=== PATIENT | male | born 1980 | race Caucasian/White ===

== ENCOUNTER 2023-04-17 08:08 | Inpatient (IN) | payer MEDICAID, SELFPAY ==
[2023-04-17] VITALS (13 sets, daily range): BP systolic 145–172; BP diastolic 85–108; PULSE 80–104; RESP 12–24; TEMP 36.4–36.9; O2SAT 97–99; BMI 31.8
--- NOTE | 2023-04-17 | ECHO_ITS ---
Patient Info Name: Paxton Benavides Age: 42 years : 1980 Gender: Male Ht: 69 in Wt: 214 lbs BSA: 2.20 m2 HR: 80 bpm BP: 153 / 98 mmHg Heart Rhythm: Sinus Rhythm Technical Quality: Fair Exam Date: 04/17/2023 3:14 PM Exam Location: [facility] Patient Status: Inpatient Admit Date: 04/17/2023 Staff Ordering Physician: Roger Hopper MD (chelsea/jem) Coal Digger: Monqiue Jesus RDCS Attending Provider: Roger Hopper MD (chelsea/jem) Referring Physician: Ward QUINTANA; Exam Type: CA echo dop color flow w con Study Info Indications - STEMI Complete two-dimensional, color flow and Doppler transthoracic echocardiogram is performed with contrast to opacify the left ventricle and to improve the deliniation of the left ventricle endocardial borders. Contrast/Agitated Saline Contrast/Ag. Saline: Definity Amount: 2.00 ml Administered By: Monique Jesus RDCS Existing IV Access: Yes IV Access Condition: patent with no signs of infiltration Summary 1. Left ventricular chamber dimension is normal. 2. Left ventricular systolic function is normal, estimated at 60-65%. 3. There is mildly increased left ventricular wall thickness. 4. The left ventricular diastolic function is grade I diastolic dysfunction. 5. The basal inferior wall, mid inferior wall, basal inferoseptal, and mid inferoseptal are hypokinetic. 6. There is mild tricuspid valve regurgitation. 7. There is mild pulmonic regurgitation. Left Ventricle Left ventricular chamber dimension is normal. Left ventricular systolic function is normal, estimated at 60-65%. There is mildly increased left ventricular wall thickness. The left ventricular diastolic function is grade I diastolic dysfunction. The basal inferior wall, mid inferior wall, basal inferoseptal, and mid inferoseptal are hypokinetic. All other shearer appear normal. Right Ventricle Right ventricular chamber dimension is normal. Right ventricular systolic function is normal. Left Atria Left atrial chamber dimension is normal. Right Atria Right atrial chamber dimension is normal. Atrial Septum Intact interatrial septum visualized by color flow imaging. Aortic Valve The aortic valve is trileaflet. There is no aortic valve sclerosis. There is no aortic valve stenosis. There is trace aortic valve regurgitation. Pulmonic Valve The pulmonic valve is normal. There is no pulmonic valve stenosis. There is mild pulmonic regurgitation. Mitral Valve The mitral valve has normal leaflets. There is no mitral valve stenosis. There is trace mitral valve regurgitation. Tricuspid Valve The tricuspid valve leaflets are normal. There is no significant tricuspid valve stenosis. There is mild tricuspid valve regurgitation. No pulmonary hypertension, estimated pulmonary arterial systolic pressure is 26 mmHg. Pericardium/Pleural The pericardium appears normal. There is no pericardial effusion. Inferior Vena Cava Normal inferior vena cava with >50% collapse upon inspiration consistent with normal right atrial pressure, 10 mmHg. Aorta The aortic root size at the sinus of Valsalva is normal. Left Ventricular Outflow Tract Name Value Normal LVOT 2D LVOT Diameter 2.01 cm L
--- NOTE | 2023-04-17 08:14 | ECG_ITS ---
Measurements Intervals [place] Rate: 75 P: 55 WA: 206 QRS: 36 QRSD: 89 T: 88 QT: 393 QTc: 441 Interpretive Statements SINUS RHYTHM ST ELEVATION, CONSIDER INFERIOR INJURY [MARKED ST ELEVATION W/O NORMALLY INFLECTED T WAVE IN II/aVF] ACUTE CT NO PREVIOUS ECG AVAILABLE FOR COMPARISON Electronically Signed On 04-17-2023 14:25:29 CDT by Roger Hopper M.D.
[2023-04-17] MEDS: SODIUM CHLORIDE 0.9% IV 1,000 ML 1000 ML (08:19)
[2023-04-17] MEDS: MORPHINE SULFATE (*CRX) 4 MG/ML INJ (08:19)
[2023-04-17] MEDS: ONDANSETRON INJ 4 MG/2 ML VIAL IV PUSH (08:20)
[2023-04-17] MEDS: TICAGRELOR 90 MG TABLET 180 MG PO (08:21)
[2023-04-17] MEDS: HEPARIN SODIUM 5,000 UNITS/ML VIAL 4000 UNITS IV PUSH (08:21)
--- NOTE | 2023-04-17 08:24 | ED.CHESTPAIN ---
HPI - Chest Pain General Chief Complaint: Chest Pain Stated Complaint: stemi Time Seen by Provider: 04/17/23 08:14 History of Present Illness HPI narrative: This is a 42-year-old male, with no significant past medical history, brought in by EMS for chest pain as a STEMI alert. The patient states approximately 1 hour ago, he developed quick onset moderate left-sided chest pain with left arm numbness. This is associated with nausea but no vomiting. EMS reports a twelve-lead EKG showed changes concerning for inferior STEMI. The patient was given aspirin and 2 sublingual nitro. Related Data Allergies Allergy/AdvReac Type Severity Reaction Status Date / Time No Known Allergies Allergy Verified 04/17/23 08:16 Review of Systems Review of Systems: CONSTITUTIONAL: Denies fever, chills, or sweats. EYES: Denies visual changes, redness, or discharge. ENT: Denies rhinorrhea, congestion, sore throat, or otalgia. CARDIOVASCULAR: Chest pain denies palpitations, or edema. RESPIRATORY: Denies cough or dyspnea. GASTROINTESTINAL: Denies abdominal pain, nausea, vomiting, or diarrhea. GENITOURINARY: Denies dysuria or hematuria. SKIN: Denies rash or itching. MUSCULOSKELETAL: Denies back pain, joint pain, or myalgia. NEUROLOGIC: Left arm numbness denies headache, dizziness, or weakness. PSYCHIATRIC: Denies anxiety or depression. PMFSH Past Medical History Medical History No significant past medical history Surgical History Surgical History History of hernia repair Social History Social History Smoking status: Never smoker Alcohol intake: never Substance use: never Exam Narrative: GENERAL: Well-developed, well-nourished, and in no acute distress. HEAD: Normocephalic, atraumatic. EYES: PERRLA and EOMI. ENT: Nares clear, no rhinorrhea or epistaxis. Mucous membranes moist. NECK: Supple. No adenopathy or masses. No carotid bruits or JVD CHEST: Clear to auscultation. No respiratory distress. No wheezes rales or rhonchi HEART: Regular rate and rhythm. No murmur heard. Normal peripheral pulses. ABDOMEN: Soft, nontender, nondistended, normal active bowel sounds. EXTREMITIES: Normal range of motion. No edema. SKIN: Warm, dry, no rash. NEURO: Alert and oriented x3. Moving all 4 limbs purposefully. PSYCH: Normal mood and affect. Course Course Emergency Course: 08:15 - EKG consistent with inferior STEMI. I discussed the case with flat lock machine operator, Dr. Hopper who agrees with Brilinta, heparin and emergent transport to the Dry Kiln Operator. Dry Kiln Operator nursing staff at bedside. Blood pressure 153/98. IV fluids started. The patient voiced understanding and is comfortable with the plan. All questions answered to his satisfaction Vital Signs Vital signs: Vital Signs Temperature 97.5 F L 04/17/23 08:04 Pulse Rate 80 04/17/23 08:04 Respiratory Rate 15 04/17/23 08:04 Blood Pressure 153/98 H 04/17/23 08:04 Pulse Oximetry 97 04/17/23 08:04 Oxygen Delivery Nasal Cannula 04/17/23 08:04 Oxygen Flow Rate 2 04/17/23 08:04 Temperature 97.5 F L 04/17/23 08:04 Pulse Rate 80 04/17/23 08:04 Respiratory Rate 15 04/17/23 08:04 Blood Pressure 153/98 H 04/17/23 08:04 Pulse Oximetry 97 04/17/23 08:04 Oxygen Delivery Nasal Cannula 04/17/23 08:04 Oxygen Flow Rate 2 04/17/23 08:04 MDM - Chest Pain MDM Narrative Medical decision making narrative: Plan: EKG, labs, imaging, STEMI alert, emergent Dry Kiln Operator transfer, reassess Differential Diagnosis Differential diagnosis: Likely st elevation myocardial infarction and other (ACS, metabolic abnormality, hypoglycemia, other) Lab Data 04/17/23 08:17 Labs: Lab Results 04/17/23 Range/Units 08:17 PT Pending INR Pending APTT Pending Sodium Pen
[2023-04-17 08:25] LABS: Basophils Absolute Auto 0.1 K/mm3 (0.0-0.1); Basophils Percent Auto 0.6 % (0.2-1.2); Eosinophils Absolute Auto 0.1 K/mm3 (0-0.3); Hematocrit 47.7 % (42.0-52.0); Hemoglobin 16.1 g/dL (14.0-18.0); Immature Granulocyte Absolute 0.13 K/mm3 (0.00-0.031); Immature Granulocyte Percent A 0.9 % (0-0.5); Lymphocytes Absolute Auto 2.96 K/mm3 (0.9-3.2); Lymphocytes Percent Auto 21.3 % (18.3-44.2); Mean Corpuscular HGB Conc 33.8 g/dl (32-36); Mean Corpuscular Hemoglobin 29.8 pg (26-34); Mean Corpuscular Volume 88.2 fl (80-100); Mean Platelet Volume 9.7 fl (7.4-10.4); Monocytes Absolute Auto 0.7 K/mm3 (0.1-0.6); Monocytes Percent Auto 5.3 % (2.6-8.5); Neutrophils Absolute Auto 9.8 K/mm3 (1.3-6.7); Neutrophils Percent Auto 70.9 % (45.5-73.1); Platelet Count Result 406 k/mm3 (150-375); Red Blood Count 5.41 M/mm3 (4.6-6.20); Red Cell Distribution Width 12.8 % (11.5-14.5); White Blood Count 13.9 K/mm3 (4.5-10.0)
[2023-04-17 08:35] LABS: Alanine Aminotransferase 81 U/L (6-50); Albumin Level 4.7 g/dL (3.5-5.1); Alkaline Phosphatase 91 U/L (38-126); Anion Gap 10 mmol/L (8-16); Aspartate Amino Transferase 47 U/L (17-59); Bilirubin,Total 1.2 mg/dL (0.2-1.3); Blood Urea Nitrogen 13 mg/dL (9-20); Calcium 8.7 mg/dL (8.4-10.2); Carbon Dioxide 25 mmol/L (22-30); Chloride 103 mmol/L (98-107); Estimated CRCL calculation 110 ml/min; Estimated Glomerular Filt Rate > 60; Glucose 183 mg/dL (65-110); Potassium 3.4 mmol/L (3.4-5.0); Sodium 138 mmol/L (137-145)
[2023-04-17 08:36] LABS: INR 0.9
[2023-04-17 08:37] LABS: Partial Thromboplastin Time 23.2 SECONDS (22.3-36.8)
[2023-04-17 08:46] LABS: Troponin I < 0.012 ng/mL (0.000-0.034)
--- NOTE | 2023-04-17 09:32 | ECG_ITS ---
Measurements Intervals [place] Rate: 91 P: 67 SC: 182 QRS: 24 QRSD: 94 T: 37 QT: 341 QTc: 421 Interpretive Statements SINUS RHYTHM COMPARED TO ECG 04/17/2023 08:09:[address] ELEVATIONS HAVE NOW RESOLVED Electronically Signed On 04-17-2023 14:36:36 CDT by Roger Hopper M.D.
--- NOTE | 2023-04-17 09:40 | PM.IMHP ---
H&P: HPI History of Present Illness Date/Time: 04/17/23 09:40 Chief Complaint: Chest pain Narrative: This is a 42 year old male with no significant past medical history who is referred for emergent cardiac cath for inferior STEMI. Patient had chest pain that began 1 hour prior to presentation, with left arm numbness, nausea. EKG shows inferior STEMI. Review of Systems Review of Systems: All systems reviewed & are unremarkable except as noted in HPI and below (HPI) [facility] Past Medical History Medical History No significant past medical history Surgical History Surgical History History of hernia repair Social History Social History Smoking status: Never smoker Alcohol intake: never Substance use: never Meds Home Medications and Allergies Allergies Allergy/AdvReac Type Severity Reaction Status Date / Time No Known Allergies Allergy Verified 04/17/23 08:16 Vital Signs Vital Signs - 24 hr 04/17/23 08:04 Temperature 36.4 C L Pulse Rate 80 Respiratory Rate 15 Blood Pressure 153/98 H Pulse Oximetry 97 Oxygen Delivery Nasal Cannula Oxygen Flow Rate 2 Exam Const: General: in distress mild HENMT: Mouth: Yes moist mucous membranes Eyes: General: appearance normal, both eyes and all related structures Sclera: sclerae normal Neck: Neck: supple Resp: Effort & Inspection: normal respiratory effort Cardio: Rate: regular rate Rhythm: regular rhythm Skin: General skin exam: normal color Psych: Mental Status: mental status grossly normal Affect: normal affect H&P: Results Labs Labs: Short CBC 04/17/23 Range/Units 08:17 WBC 13.9 H (4.5-10.0) K/mm3 Hgb 16.1 (14.0-18.0) g/dL Hct 47.7 (42.0-52.0) % Plt Count 406 H (150-375) k/mm3 BMP 04/17/23 08:17 Sodium 138 Potassium 3.4 Chloride 103 Carbon Dioxide 25 BUN 13 Creatinine 0.90 Glucose 183 H Calcium 8.7 Cardiac Enzymes 04/17/23 Range/Units 08:17 Troponin I < 0.012 (0.000-0.034) ng/mL Liver Function 04/17/23 Range/Units 08:17 Total Bilirubin 1.2 (0.2-1.3) mg/dL AST 47 (17-59) U/L ALT 81 H (6-50) U/L Alkaline Phosphatase 91 (38-126) U/L Albumin 4.7 (3.5-5.1) g/dL Assessment and Plan Assessment and plan (1) Acute ST elevation myocardial infarction (STEMI) of inferior wall: Code(s): I21.19 - ST elevation (STEMI) myocardial infarction involving other coronary artery of inferior wall Status: Acute Plan Cardiac cath showed acute thrombotic 100% occlusion of the mid RCA, s/p successful IVUS-guided PCI with aspiration thrombectomy and placement of CACHORRO x 1 (5.0mm x 30mm) in the proximal-mid RCA. No obstructive coronary disease of the left coronary system. LVEDP is 17mmHg. Admit to the ICU. Loaded with ASA in the ED. Continue with ASA 81mg once daily indefinitely Loaded with Brilinta 180mg in the ED. Continue with Brilinta 90mg BID for at least 1 year. Will start high-intensity statin. Check lipid panel, Hgb A1c, TSH level. Echocardiogram Referral to cardiac rehab placed. Recommendations/Plan discussed with Segmental Wall Installer.
--- NOTE | 2023-04-17 09:48 | WPDMODSED ---
Moderate Sedation Note-Pt Data Patient Data Diagnosis: STEMI Present Complaint: STEMI Procedure to be performed/Plan: Primary PCI Allergies Allergy/AdvReac Type Severity Reaction Status Date / Time No Known Allergies Allergy Verified 04/17/23 08:16 Current Medications: Active Medications Aspirin (Aspirin 81 Mg Enteric Tablet) 81 mg PO QAM [facility] Atorvastatin Calcium (Atorvastatin 40 Mg Tablet) 80 mg PO DAILY JASON Sodium Chloride (Normal Saline Iv) 1,000 mls @ 999 mls/hr IV CONT .Q1H1M STA Stop: 04/17/23 09:19 Last Admin: 04/17/23 08:22 Dose: Not Given Sodium Chloride (Normal Saline Iv) 1,000 mls @ 125 mls/hr IV CONT .Q8H ONE Stop: 04/17/23 17:31 Perflutren Lipid Microsphere (Perflutren Lipid Microspheres 1.5 Ml Vial Diluted To 10 Ml Total Volume) 0 ml IV PUSH ONCE PRN; Protocol PRN Reason: adequate visualization Stop: 04/20/23 09:36 Ticagrelor (Ticagrelor 90 Mg Tablet) 90 mg PO Q12HR JASON Sedation/Anesthesia: No previous sedation/anesthesia problems (including family history). [facility] Past Medical History Medical History No significant past medical history Surgical History Surgical History History of hernia repair Social History Social History Smoking status: Never smoker Alcohol intake: never Substance use: never Mod Sed Physical Exam Physical Exam Pre Procedural Exam: Normal: Airway, Heart Rate, Heart Rhythm, Neuro Exam, Extremities and Skin and Variation: Appearance (In mild distress) Hours since solid foods: 12 Hours since liquid intake: 8 Mallampati Classification: class III Internal Medicine - PN: Obj Da Vital Signs Vital Signs: Vital Signs - 24 hr 04/17/23 08:04 Temperature 36.4 C L Pulse Rate 80 Respiratory Rate 15 Blood Pressure 153/98 H Pulse Oximetry 97 Oxygen Delivery Nasal Cannula Oxygen Flow Rate 2 Meds/Results Medications: Active Medications Generic Name Dose Route Start Last Admin Trade Name Freq PRN Reason Stop Dose Admin Aspirin 81 mg 04/18/23 09:00 Aspirin 81 Mg Enteric Tablet PO QAM [facility] Atorvastatin Calcium 80 mg 04/17/23 09:40 Atorvastatin 40 Mg Tablet PO DAILY JASON Sodium Chloride 1,000 mls @ 999 mls/hr 04/17/23 08:19 04/17/23 08:22 Normal Saline Iv IV CONT 04/17/23 09:19 Not Given .Q1H1M STA Sodium Chloride 1,000 mls @ 125 mls/hr 04/17/23 09:32 Normal Saline Iv IV CONT 04/17/23 17:31 .Q8H ONE Perflutren Lipid Microsphere 0 ml 04/17/23 09:36 Perflutren Lipid Microspheres 1.5 Ml Vial Diluted To 10 Ml Total Volume IV PUSH 04/20/23 09:36 ONCE PRN adequate visualization Protocol Ticagrelor 90 mg 04/17/23 21:00 Ticagrelor 90 Mg Tablet PO Q12HR JASON Labs 04/17/23 08:17 04/17/23 08:17 Labs: Laboratory Results - last 24 hr 04/17/23 08:17 WBC 13.9 H RBC 5.41 Hgb 16.1 Hct 47.7 MCV 88.2 MCH 29.8 MCHC 33.8 RDW 12.8 Plt Count 406 H MPV 9.7 Immature Gran % (Auto) 0.9 H Neut % (Auto) 70.9 Lymph % (Auto) 21.3 Murray % (Auto) 5.3 Eos % (Auto) 1.0 Baso % (Auto) 0.6 Lymph # (Auto) 2.96 Murray # (Auto) 0.7 H Eos # (Auto) 0.1 Baso # (Auto) 0.1 Abs Immat Gran (auto) 0.13 H Absolute Neuts (auto) 9.8 H Absolute Nucleated RBC 0.0 Nucleated RBC % 0.0 PT 13.0 INR 0.9 APTT 23.2 Sodium 138 Potassium 3.4 Chloride 103 Carbon Dioxide 25 Anion Gap 10 BUN 13 Creatinine 0.90 Estim Creat Clear Calc 110 Estimated GFR > 60 Glucose 183 H Calcium 8.7 Total Bilirubin 1.2 AST 47 ALT 81 H Alkaline Phosphatase 91 Troponin I < 0.012 Total Protein 8.0 Albumin 4.7 Blood Type A Positive Antibody Screen Negative ASA Classification/Sedation ASA Classification/Sedation ASA Class: IV Emergent: Yes Risks: Risks, benefits and alternatives expl
--- NOTE | 2023-04-17 09:48 | WPDCARDPROC ---
Cardiac Cath Procedure Note Date of procedure:: 04/17/23 Performing physician:: CATHETERIZATION LABORATORY REPORT Procedure Date: 04/17/2023 Countersinker: Rgoer Hopper M.D., [facility]? Referring Physician: Dr. Walker ([facility]) ? Anesthesia: Versed and Fentanyl were ordered and given in my presence at 08:37, procedure ended at 09:22. Supervision of nurse monitored moderate sedation with Versed and Fentanyl was provided for 45 minutes. Total of Versed 1mg and Fentanyl 25mcg were administered by the Extrusion Press Supervisor RN Isabelle Lopez. Pre-op Diagnosis: Inferior STEMI Post-op Diagnosis: 1. Acute thrombotic 100% occlusion of the mid RCA s/p successful IVUS-guided PCI with aspiration thrombectomy and CACHORRO x 1 (5.0mm x 30mm) in the proximal-mid RCA. 2. Mild non-obstructive coronary artery disease of the left coronary system 3. Left ventricular end-diastolic pressure of 17mmHg Procedure(s): 1. Moderate sedation 2. Ultrasound-guided access of the right common femoral artery 3. Coronary angiography 4. Left heart cath 5. Aspiration thrombectomy with Penumbra aspiration catheter 6. PCI of the RCA with CACHORRO x 1 with pre and post dilatation 7. Angioseal closure of the right common femoral artery Access Site: Right common femoral artery Brief History and Clinical Indications: Patient is a 42 year old male who is referred for emergent cardiac cath for inferior STEMI. All risks, benefits and alternatives to left heart catheterization with or without percutaneous coronary intervention was discussed at length with the patient. Risk of complications including but not limited to bleeding, infection, arrhythmia, stroke, worsening kidney function, blood loss, groin hematoma, limb loss, emergency coronary artery bypass grafting, and even were discussed with the patient and all questions were answered. The patient understood and wished to proceed. Time out called, patient name, date of , medical record number, allergies, procedure performed, identify Countersinker, patient and staff member concurred with accurate data, procedure carried on. Findings: LEFT HEART CATHETERIZATION FINDINGS: 1. Left main: Large caliber vessel. The left main coronary artery is widely patent without any significant obstructive disease. 2. Left anterior descending: Large caliber vessel. The LAD has mild diffuse disease without any significant obstructive angiographic disease. The diagonal branches are of very small caliber. 3. Ramus: There is a large caliber Ramus branch with luminal irregularities without any significant obstructive angiographic disease. 4. Left circumflex: Large caliber vessel. The proximal LCX has mild diffuse disease. Remainder of the LCX has luminal irregularities. There is a large caliber OM vessel with mild disease in its ostium; remainder of the vessel with luminal irregularities. 5. Right coronary artery: Large caliber vessel. The RCA is the dominant vessel. The RCA has an acute thrombotic 100% occlusion in the mid RCA with DREA 0 flow. 6. Left ventricle: A. End-diastolic pressure 17mmHg. B. LV gram deferred. C. No significant gradient across aortic valve on catheter pullback. Description of Procedure and PCI: Informed consent signed and placed in the chart. Patient transferred to offset label rewinder room. Prepped and draped in usual sterile fashion. 2% lidocaine in right groin area. Micropuncture needle used to access right common femoral artery under ultrasound guidance. J wire advanced, micropuncture cannula placed. Right iliofemoral angiogram performed, access confirmed and micropuncture cannula exchanged for 6-FR sheath. 5F FL 4 diagnostic catheter engaged Left Main Coronary Artery. Multiple orthogonal angiogram obtained and reviewed Angiomax used for anticoagulation. 6F FR 4 guide catheter was used to intubate the RCA. 0.014 [place] coronary wire was passed in to the distal RCA. Aspiration thrombectomy per
--- NOTE | 2023-04-17 09:57 | ADMGEN ---
This patient, Paxton Benavides, was admitted to Intensive Care Unit-2. Patient/family oriented to hospital policies and general routines including ID bracelet, bed and alarms, visiting hours, pain management, procedures, bathroom and other care routines, personal items, smoking policy, room service/diet, and visiting hours. Information on how to activate the Rapid Response Team has been discussed. Patient/Family are encouraged to report perceived risks to care and to ask questions if they do not understand what they are told or what they should do.
[2023-04-17 10:14] LABS: Cholesterol 241 mg/dL (0-200); HDL Direct 34 mg/dL; Triglycerides 189 mg/dL (<150)
[2023-04-17] MEDS: ATORVASTATIN 40 MG TABLET 80 MG PO (10:17)
[2023-04-17] MEDS: SODIUM CHLORIDE 0.9% IV 1,000 ML 125 ML IV CONT (10:17)
[2023-04-17 10:18] LABS: Hemoglobin A1C 5.6 % (<5.7)
[2023-04-17 10:25] LABS: LDL Cholesterol Direct 159 mg/dL
[2023-04-17 10:47] LABS: Thyroid Stimulating Hormone 0.507 uIU/mL (0.465-4.680)
--- NOTE | 2023-04-17 11:05 | WPDCNINT ---
Assessment and Plan Assessment and plan (1) Acute ST elevation myocardial infarction (STEMI) of inferior wall: Code(s): I21.19 - ST elevation (STEMI) myocardial infarction involving other coronary artery of inferior wall Status: Acute Assessment and Plan: Patient presented with left-sided chest pain and left arm numbness along with nausea but no vomiting, denies any shortness of breath. Chest pain started 1 hour prior to arrival to the ER, EKG showed inferior ST elevation myocardial injury -emergent cardiac catheterization with PTCA/PCI with CACHORRO x1 to mid RCA with aspiration thrombectomy -patient started on aspirin, statin, beta-damaris, ticagrelor -cardiology following the patient -echocardiogram has been ordered (2) Tobacco use disorder: Code(s): F17.200 - Nicotine dependence, unspecified, uncomplicated Status: Acute Assessment and Plan: Patient smokes 1/2 pack of cigarettes/cigars daily for many many years -counseled patient on cessation of smoking -he is very willing to quit smoking altogether Plan DVT prophylaxis: Status post cardiac catheterization on Integrilin Stress ulcer prophylaxis: Not indicated Nutrition: Heart healthy diet Code Status: Full code Critical Care Time Spent: 46 minutes Due to a high probability of clinically significant, life threatening deterioration, the patient required my highest level of preparedness to intervene emergently and I personally spent this critical care time directly and personally managing the patient. This critical care time included obtaining a history; examining the patient; pulse oximetry; ordering and review of studies; arranging urgent treatment with development of a management plan; evaluation of patient's response to treatment; frequent reassessment; and discussions with other providers. It was exclusive of separately billable procedures and treating other patients and teaching time. Please see Assessment and Plan section and the rest of the note for further information on patient assessment and treatment This dictation may have been done utilizing a voice recognition system. Attempts have been made to correct errors. However, there may be uncorrected grammatical, spelling, and recognitions errors present. Supervisor Bonding Consult Note Consult date: 04/17/23 Reason for consult: Inferior ST-elevation myocardial injury, status post emergent cardiac catheterization with PTCA/PCI with CACHORRO x1 to mid RCA with aspiration thrombectomy HPI: Paxton Benavides is a 42 year old male with no significant past medical history apart from smoking presented to the ED with chest pain that started 1 hour prior to arrival in the ER. Patient had left-sided chest pain with left arm numbness, associated with nausea but no vomiting. Patient denies any shortness of breath. EKG showed inferior ST elevation TN, patient did received aspirin and sublingual nitroglycerin. Patient was taken for emergent cardiac catheterization with PTCA/PCI with CACHORRO x1 to mid RCA with aspiration thrombectomy. Patient was started on aspirin, statin, ticagrelor and beta-damaris. Patient seen and examined upon arrival to the ICU, is awake, alert, denies any chest pain, shortness a breath, nausea, vomiting. States he smoked 1/2 package of cigarettes per day for many many years and planning to quit at this time. 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 Hemodynamically stable, in normal sinus rhythm with good O2 sats on room air. Review of Systems Review of Systems: All systems reviewed & are unremarkable except as noted in HPI and below PMFSH Past Medical History Medical History No significant past medical history Surgical History Surgical History History of hernia repair Family History Family History (Updated 04/17/23 @ 09:53 by Noelle Tucker RN)
[2023-04-17] MEDS: PERFLUTREN LIPID MICROSPHERES 1.5 ML VIAL DILUTED TO 10 ML TOTAL VOLUME IV PUSH (16:00)
--- NOTE | 2023-04-17 16:37 | IVDEFINITY ---
Prior to administration of IV Definity the patient was educated on the risks and benefits of the imaging enhancing agent including potential adverse side effects. The patient verbalized understanding. Allergies were verified. No exclusion criteria were identified and at least one of the following inclusion criteria were met: 1) physician request, 2) patient technically difficult to image (per the [place] [employer] guidelines of two or more segments not discernable within the apical view), or 3) questionable left ventricular function. ?
[2023-04-17] MEDS: METOPROLOL TARTRATE 25 MG TABLET PO (20:49)
[2023-04-17] MEDS: TICAGRELOR 90 MG TABLET PO (20:50)
[2023-04-18] VITALS (9 sets, daily range): BP systolic 136–164; BP diastolic 83–115; PULSE 80–107; RESP 15–23; TEMP 36.6–37.1; O2SAT 95–98
[2023-04-18 04:15] LABS: Basophils Absolute Auto 0.1 K/mm3 (0.0-0.1); Basophils Percent Auto 0.4 % (0.2-1.2); Eosinophils Absolute Auto 0.1 K/mm3 (0-0.3); Eosinophils Percent Auto 1.1 % (0-4.4); Hematocrit 45.7 % (42.0-52.0); Hemoglobin 15.4 g/dL (14.0-18.0); Immature Granulocyte Absolute 0.07 K/mm3 (0.00-0.031); Immature Granulocyte Percent A 0.6 % (0-0.5); Lymphocytes Absolute Auto 2.62 K/mm3 (0.9-3.2); Lymphocytes Percent Auto 20.7 % (18.3-44.2); Mean Corpuscular HGB Conc 33.7 g/dl (32-36); Mean Corpuscular Hemoglobin 29.9 pg (26-34); Mean Corpuscular Volume 88.7 fl (80-100); Mean Platelet Volume 9.7 fl (7.4-10.4); Monocytes Absolute Auto 0.8 K/mm3 (0.1-0.6); Monocytes Percent Auto 6.5 % (2.6-8.5); Neutrophils Percent Auto 70.7 % (45.5-73.1); Platelet Count Result 337 k/mm3 (150-375); Red Blood Count 5.15 M/mm3 (4.6-6.20); Red Cell Distribution Width 12.8 % (11.5-14.5); White Blood Count 12.7 K/mm3 (4.5-10.0)
[2023-04-18 04:26] LABS: Alanine Aminotransferase 74 U/L (6-50); Albumin Level 4.3 g/dL (3.5-5.1); Alkaline Phosphatase 75 U/L (38-126); Anion Gap 5 mmol/L (8-16); Aspartate Amino Transferase 112 U/L (17-59); Bilirubin,Total 1.4 mg/dL (0.2-1.3); Blood Urea Nitrogen 12 mg/dL (9-20); Calcium 8.6 mg/dL (8.4-10.2); Carbon Dioxide 27 mmol/L (22-30); Chloride 105 mmol/L (98-107); Estimated CRCL calculation 110 ml/min; Estimated Glomerular Filt Rate > 60; Glucose 113 mg/dL (65-110); Magnesium 2.1 mg/dL (1.6-2.3); Phosphorus 4.2 mg/dL (2.5-4.5); Potassium 3.7 mmol/L (3.4-5.0); Sodium 137 mmol/L (137-145)
[2023-04-18] MEDS: hydrALAZINE HCL 20 MG/ML VIAL 10 MG IV PUSH (08:06)
[2023-04-18] MEDS: METOPROLOL TARTRATE 50 MG TAB PO (08:06)
[2023-04-18] MEDS: ATORVASTATIN 40 MG TABLET 80 MG PO (08:06)
[2023-04-18] MEDS: ASPIRIN 81 MG ENTERIC TABLET PO (08:06)
[2023-04-18] MEDS: TICAGRELOR 90 MG TABLET PO (08:06)
--- NOTE | 2023-04-18 09:56 | PM.DS ---
DS: Admitting Diagnosis Discharge Date 04/18/2022 Admitting Diagnosis 04/17/2022 DS: Discharge Diagnosis Discharge Diagnosis (1) Acute ST elevation myocardial infarction (STEMI) of inferior wall: Code(s): I21.19 - ST elevation (STEMI) myocardial infarction involving other coronary artery of inferior wall Status: Acute Assessment and Plan: 1. Acute thrombotic 100% occlusion of the mid RCA s/p successful IVUS-guided PCI with aspiration thrombectomy and CACHORRO x 1 (5.0mm x 30mm) in the proximal-mid RCA. 2. Mild non-obstructive coronary artery disease of the left coronary system 3. Left ventricular end-diastolic pressure of 17mmHg Continue low-dose aspirin, Brilinta 90 mg p.o. b.i.d., metoprolol tartrate 50 mg p.o. b.i.d., losartan 25 mg p.o. daily, atorvastatin 80 mg daily. 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 He is found have inferior ST-elevation myocardial infarction and went to the greenhouse laborer yesterday as detailed above. He underwent a CACHORRO to the mid RCA. He feels fine otherwise at this point including no chest pain, shortness breath, syncope, presyncope. No groin pain. Status at Discharge Cognitive/behavioral status at discharge: Stable Time Spent with Patient Time attestation: Total time spent providing and/or coordinating discharge services: Greater than 30 minutes. 45 minutes were spent talking to the patient, examining, formulating discharge plan Exam Narrative: Awake alert oriented appears to be in no acute distress Const: General: comfortable HENMT: Face/Nose/Sinus: Normal nares present Eyes: Sclera: sclerae normal Neck: Neck: supple and no JVD Resp: Effort & Inspection: normal respiratory effort Cardio: Rate: regular rate Rhythm: regular rhythm GI: Inspection: non-distended GI Palp: Yes Soft to palpation Skin: General skin exam: normal color Neuro: Motor exam (neuro): 5/5 motor strength present throughout Sensory Exam: normal sensation Extrem: General: normal to inspection Other: Right groin is free of hematoma ecchymosis or bruit. Bandage is removed Psych: Mental Status: mental status grossly normal DS: Data Data Completed and Pending Completed studies during hospitalization: Cardiac catheterization as detailed above Echo 1. Left ventricular chamber dimension is normal. ? 2. Left ventricular systolic function is normal, estimated at 60-65%. ? 3. There is mildly increased left ventricular wall thickness. ? 4. The left ventricular diastolic function is grade I diastolic dysfunction. ? 5. The basal inferior wall, mid inferior wall, basal inferoseptal, and mid inferoseptal are hypokinetic. ? 6. There is mild tricuspid valve regurgitation. ? 7. There is mild pulmonic regurgitation. Labs on day of discharge: Labs from last 24 hours 04/18/23 04/17/23 04/17/23 03:44 14:21 10:16 WBC 12.7 H RBC 5.15 Hgb 15.4 Hct 45.7 MCV 88.7 MCH 29.9 MCHC 33.7 RDW 12.8 Plt Count 337 MPV 9.7 Immature Gran % (Auto) 0.6 H Neut % (Auto) 70.7 Lymph % (Auto) 20.7 [place] % (Auto) 6.5 Eos % (Auto) 1.1 Baso % (Auto) 0.4 Lymph # (Auto) 2.62 [place] # (Auto) 0.8 H Eos # (Auto) 0.1 Baso # (Auto) 0.1 Abs Immat Gran (auto) 0.07 H Absolute Neuts (auto) 9.0 H Absolute
--- NOTE | 2023-04-18 10:54 | WPDINTPN ---
Progress Note: A&P Assessment and Plan (1) Acute ST elevation myocardial infarction (STEMI) of inferior wall: Code(s): I21.19 - ST elevation (STEMI) myocardial infarction involving other coronary artery of inferior wall Status: Acute Assessment and Plan: Patient presented with left-sided chest pain and left arm numbness along with nausea but no vomiting, denies any shortness of breath. Chest pain started 1 hour prior to arrival to the ER, EKG showed inferior ST elevation myocardial injury -emergent cardiac catheterization with PTCA/PCI with CACHORRO x1 to mid RCA with aspiration thrombectomy -continue aspirin, statin, beta-damaris, ticagrelor -losartan was added per Cardiology -cardiology following the patient -04/17/2023 echocardiogram Summary ? 1. Left ventricular chamber dimension is normal. ? 2. Left ventricular systolic function is normal, estimated at 60-65%. ? 3. There is mildly increased left ventricular wall thickness. ? 4. The left ventricular diastolic function is grade I diastolic dysfunction. ? 5. The basal inferior wall, mid inferior wall, basal inferoseptal, and mid inferoseptal are hypokinetic. ? 6. There is mild tricuspid valve regurgitation. ? 7. There is mild pulmonic regurgitation. (2) Tobacco use disorder: Code(s): F17.200 - Nicotine dependence, unspecified, uncomplicated Status: Acute Assessment and Plan: Patient smokes 1/2 pack of cigarettes/cigars daily for many many years -counseled patient on cessation of smoking -he is very willing to quit smoking altogether (3) Essential hypertension: Code(s): I10 - Essential (primary) hypertension Status: Acute Assessment and Plan: Patient with essential hypertension, continue metoprolol, losartan was added by Cardiology (4) Hyperlipidemia LDL goal <70: Code(s): E78.5 - Hyperlipidemia, unspecified Status: Acute Assessment and Plan: Continue high-dose statin Plan DVT prophylaxis: Patient discharging today Stress ulcer prophylaxis: Not indicated Nutrition: Heart healthy diet Code Status: Full code Critical Care Time Spent: 31 minutes Due to a high probability of clinically significant, life threatening deterioration, the patient required my highest level of preparedness to intervene emergently and I personally spent this critical care time directly and personally managing the patient. This critical care time included obtaining a history; examining the patient; pulse oximetry; ordering and review of studies; arranging urgent treatment with development of a management plan; evaluation of patient's response to treatment; frequent reassessment; and discussions with other providers. It was exclusive of separately billable procedures and treating other patients and teaching time. Please see Assessment and Plan section and the rest of the note for further information on patient assessment and treatment This dictation may have been done utilizing a voice recognition system. Attempts have been made to correct errors. However, there may be uncorrected grammatical, spelling, and recognitions errors present. Subjective Date/time seen: 04/18/23 10:54 Interval history: Reason for consult: Inferior ST-elevation myocardial injury, status post emergent cardiac catheterization with PTCA/PCI with CACHORRO x1 to mid RCA with aspiration thrombectomy 04/18/2023: Patient seen and examined the ICU. Denies any chest pain, shortness of breath abdominal pain, nausea, vomiting. Feels much better. Adequate urine output, tolerating p.o. diet, hemodynamically stable, afebrile Review of Systems Review of Systems: All systems reviewed & are unremarkable except as noted in HPI and below Exam Narrative: General: Well-built gentleman in no acute distress HEENT:? Pupils equal and reactive, sclerae is clear Neck:? Supple Respiratory:? Clear to auscultation bilaterally Cardiac:? S1-S2 is normal, regular rate and rhythm Abdom
== END 2023-04-18 10:54 | disposition home or self-care (01) | DRG 174 ==
LOC: ANHED 08:25 → ANHICU 11:13
PROVIDERS: Internal Medicine; Admitting Provider Internal Medicine; Emergency Provider Preventive Medicine Aerospace Medicine; Visit Provider Internal Medicine Cardiovascular Disease
PROC: 4A023N7 Measurement of Cardiac Sampling and Pressure, Left Heart, Percutaneous Approach (ICD-10-PCS; CPT 93452; principal; 2023-04-17 08:20)
PROC: 027034Z Dilation of Coronary Artery, One Artery with Drug-eluting Intraluminal Device, Percutaneous Approach (ICD-10-PCS; 2023-04-17 08:20)
PROC: 027034Z Dilation of Coronary Artery, One Artery with Drug-eluting Intraluminal Device, Percutaneous Approach (ICD-10-PCS; 2023-04-17 08:20)
PROC: 027034Z Dilation of Coronary Artery, One Artery with Drug-eluting Intraluminal Device, Percutaneous Approach (ICD-10-PCS; 2023-04-17 08:20)
DX: I21.19 ST elevation (STEMI) myocardial infarction involving other coronary artery of inferior wall (principal); E78.5 Hyperlipidemia, unspecified; F17.210 Nicotine dependence, cigarettes, uncomplicated; I25.10 Atherosclerotic heart disease of native coronary artery without angina pectoris; I10 Essential (primary) hypertension
CPT/HCPCS: 36415; 80053; 80061; 83036; 83735; 84100; 84443; 84484; 85025; 85610; 85730; 86850; 86900; 86901; 92978; 93005; 93458; 96374; 96375; 99285; A9270; C1725; C1753; C1760; C1768; C1874; C1887; C1894; C8929; C9606; G0269; J0360; J0583; J1327; J1644; J2250; J2270; J2305; J2405; J3010; J7030; J7040; Q9957

== ENCOUNTER 2023-04-20 19:30 | Observation (INO) | payer MEDICAID, SELFPAY ==
--- NOTE | ~2023-04-20 | XR_ITS ---
EXAMINATION: XR chest 2V Exam Date/Time: 04/20/2023 19:42 CDT HISTORY: cp LEFT SIDED CHEST PAIN, HEART ATTACK 3 DAYS AGO Comparison: None. RESULT: Lines, tubes, and devices: None. Lungs and pleura: Clear. Cardiomediastinal silhouette: Unremarkable. Other: No acute osseous or upper abdominal finding. Radiopacity projects over the left medial clavic le in the frontal view, not visible on lateral view, likely artifact/external to the patient. IMPRESSION: No acute cardiopulmonary process. Reviewed, dictated and finalized at location K.
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
--- NOTE | 2023-04-20 19:32 | ECG_ITS ---
Measurements Intervals [place] Rate: 106 P: 24 TN: 135 QRS: 16 QRSD: 92 T: 20 QT: 321 QTc: 427 Interpretive Statements SINUS TACHYCARDIA NONSPECIFIC STTW ABNORMALITY ABNORMAL RHYTHM ECG COMPARED TO ECG 04/20/2023 19:48:04 NO SIGNIFICANT CHANGES Electronically Signed On 04-21-2023 15:56:36 CDT by Roger Hopper M.D.
[2023-04-20 19:35] VITALS: BP 144/89; PULSE 113; RESP 18; TEMP 36.6; O2SAT 99
[2023-04-20 20:01] LABS: Basophils Absolute Auto 0.1 K/mm3 (0.0-0.1); Basophils Percent Auto 0.7 % (0.2-1.2); Eosinophils Absolute Auto 0.2 K/mm3 (0-0.3); Eosinophils Percent Auto 1.7 % (0-4.4); Hemoglobin 15.5 g/dL (14.0-18.0); Immature Granulocyte Absolute 0.08 K/mm3 (0.00-0.031); Immature Granulocyte Percent A 0.7 % (0-0.5); Lymphocytes Absolute Auto 3.35 K/mm3 (0.9-3.2); Lymphocytes Percent Auto 28.4 % (18.3-44.2); Mean Corpuscular HGB Conc 34.4 g/dl (32-36); Mean Corpuscular Hemoglobin 30.2 pg (26-34); Mean Corpuscular Volume 87.5 fl (80-100); Mean Platelet Volume 9.6 fl (7.4-10.4); Monocytes Absolute Auto 0.9 K/mm3 (0.1-0.6); Monocytes Percent Auto 7.2 % (2.6-8.5); Neutrophils Absolute Auto 7.3 K/mm3 (1.3-6.7); Neutrophils Percent Auto 61.3 % (45.5-73.1); Platelet Count Result 383 k/mm3 (150-375); Red Blood Count 5.14 M/mm3 (4.6-6.20); Red Cell Distribution Width 12.6 % (11.5-14.5); White Blood Count 11.8 K/mm3 (4.5-10.0)
[2023-04-20 20:06] LABS: Partial Thromboplastin Time 28.7 SECONDS (22.3-36.8)
[2023-04-20 20:07] LABS: Alanine Aminotransferase 76 U/L (6-50); Albumin Level 4.6 g/dL (3.5-5.1); Alkaline Phosphatase 86 U/L (38-126); Anion Gap 8 mmol/L (8-16); Aspartate Amino Transferase 53 U/L (17-59); Bilirubin,Total 1.6 mg/dL (0.2-1.3); Blood Urea Nitrogen 19 mg/dL (9-20); Calcium 8.9 mg/dL (8.4-10.2); Carbon Dioxide 26 mmol/L (22-30); Chloride 105 mmol/L (98-107); Estimated CRCL calculation 101 ml/min; Estimated Glomerular Filt Rate > 60; Glucose 103 mg/dL (65-110); Lipase 77 U/L (23-300); Potassium 3.9 mmol/L (3.4-5.0); Sodium 139 mmol/L (137-145)
[2023-04-20] MEDS: NITROGLYCERIN SL 0.4 MG TABLET SUBLINGUAL (20:32)
[2023-04-20] MEDS: ASPIRIN 81 MG CHEWABLE TABLET 324 MG PO (20:32)
--- NOTE | 2023-04-20 20:49 | ED.CHESTPAIN ---
HPI - Chest Pain General Chief Complaint: Chest Pain <Vero Hernandez PA-C - Last Filed: 04/20/23 23:48> Stated Complaint: cp <Vero Hernandez PA-C - Last Filed: 04/20/23 23:48> Time Seen by Provider: 04/20/23 20:05 <Vero Hernandez PA-C - Last Filed: 04/20/23 23:48> History of Present Illness HPI narrative: 42-year-old male with a recent STEMI on 04/17/2023 reports for evaluation of chest pain since 1899 tonight. Patient states he was standing at the stove getting food when he began having chest pain in his left anterior chest wall. States the pain did not radiate anywhere and was not associate with nausea, vomiting or diaphoresis. He does report that while he was walking from the parking lot to the emergency department the chest pain worsened to a 6/10 and is currently 4/10 while resting in the exam bed. He reports dyspnea which is unchanged from his baseline since he was discharged from the hospital 2 days ago. He also reports a cough which is unchanged from his smoker's cough and is nonproductive. He was discharged home with the 80 mg of atorvastatin, 90 mg of Brilinta, 25 mg of losartan and 50 mg of metoprolol which she has been taking as prescribed and has not missed any doses. Per chart review, patient was found to have a STEMI on 04/17. He was immediately taken to cardiac greenhouse laborer by Dr. Hopper where he was found to have acute thrombotic 100% occlusion of mid RCA. Successful IVUS guided PCI with aspiration thrombectomy in the proximal mid RCA performed. There is also evidence of mild nonobstructive coronary artery disease of the left coronary system and left ventricular end-diastolic pressure of 17 mg of mercury. The patient was admitted to the ICU and discharged the following day. He states he has been feeling better each day at home until symptoms started again tonight. <Vero Hernandez PA-C - Last Filed: 04/20/23 23:48> Related Data Allergies/Adverse Reactions: Allergies Allergy/AdvReac Type Severity Reaction Status Date / Time No Known Allergies Allergy Verified 04/17/23 08:16 <Vero Hernandez PA-C - Last Filed: 04/20/23 23:48> Review of Systems Review of Systems: CONSTITUTIONAL: Denies fever, chills EYES: Denies visual changes, redness, or discharge. ENT: Denies rhinorrhea, congestion, sore throat, or otalgia. CARDIOVASCULAR: See HPI RESPIRATORY: See HPI GASTROINTESTINAL: Denies abdominal pain, nausea, vomiting, or diarrhea. GENITOURINARY: Denies dysuria or hematuria. SKIN: Denies rash or itching. MUSCULOSKELETAL: Denies back pain, joint pain, or myalgia. NEUROLOGIC: Denies headache, numbness, dizziness, or weakness. PSYCHIATRIC: Denies anxiety or depression. <Vero Hernandez PA-C - Last Filed: 04/20/23 23:48> [facility] Past Medical History Medical History: Medical History Essential hypertension Hyperlipidemia LDL goal <70 No significant past medical history <Vero Hernandez PA-C - Last Filed: 04/20/23 23:48> Surgical History Surgical History: Surgical History History of hernia repair <Vero Hernandez PA-C - Last Filed: 04/20/23 23:48> Family History Family History: Family History (Updated 04/21/23 @ 00:44 by Gertrudis Sorto RN) Grandparent Cancer Father Automobile accident <Vero Hernandez PA-C - Last Filed: 04/20/23 23:48> Social History Social History: Social History Smoking packs per day: 1.5 Smoking cigarettes per day: 30.0 Years smoked: 25 Smoking pack-years: 37.50 Smoking status: Heavy tobacco smoker Tobacco type: cigarettes and cigars Alcohol intake: never Substance use: never Lack of Transportation: No Lack of Food: Never True Current Housing: I Have Housing Concerned About Future Housing: N
[2023-04-20] MEDS: HEPARIN SODIUM 5,000 UNITS/ML VIAL 4000 UNITS IV PUSH (21:06)
[2023-04-20] MEDS: HEPARIN SOD/D5W 100 UNITS/ML 25,000 UNITS/250 ML BAG 10 UNITS IV CONT (21:07)
[2023-04-20 21:25] VITALS: BP 119/88; PULSE 90; RESP 20; O2SAT 98
--- NOTE | 2023-04-20 22:57 | PC.NURSE ---
Report given to DORY Arriaga, no questions. Care of pt transferred.
[2023-04-20 23:58] VITALS: BP 128/94; PULSE 88; RESP 20; O2SAT 97
[2023-04-21] VITALS (15 sets, daily range): BP systolic 92–136; BP diastolic 63–94; PULSE 73–108; RESP 18; TEMP 36.1–37.1; O2SAT 97–99; BMI 31.2
--- NOTE | 2023-04-21 00:26 | ADMGEN ---
This patient, Paxton Benavides, was admitted to IMU Room 211-01. Patient/family oriented to hospital policies and general routines including ID bracelet, bed and alarms, visiting hours, pain management, procedures, bathroom and other care routines, personal items, smoking policy, room service/diet, and visiting hours. Information on how to activate the Rapid Response Team has been discussed. Patient/Family are encouraged to report perceived risks to care and to ask questions if they do not understand what they are told or what they should do.
[2023-04-21 03:24] LABS: Partial Thromboplastin Time 45.9 SECONDS (22.3-36.8)
[2023-04-21] MEDS: HEPARIN SODIUM 5,000 UNITS/ML VIAL 4000 UNITS IV PUSH (03:41)
--- NOTE | 2023-04-21 06:00 | ECG_ITS ---
Measurements Intervals [place] Rate: 87 P: 57 WI: 165 QRS: -3 QRSD: 87 T: 3 QT: 357 QTc: 430 Interpretive Statements SINUS RHYTHM INFERIOR MYOCARDIAL INFARCTION [40+ ms Q WAVE AND/OR ST/T ABNORMALITY IN II/aVF], PROBABLY OLD COMPARED TO ECG 04/20/2023 19:59:09 SINUS RHYTHM NOW PRESENT Electronically Signed On 04-21-2023 16:20:43 CDT by Roger Hopper M.D.
[2023-04-21] MEDS: ASPIRIN 81 MG CHEWABLE TABLET PO (10:14)
[2023-04-21] MEDS: HEPARIN SODIUM 5,000 UNITS/ML VIAL 3500 UNITS IV PUSH (10:19)
[2023-04-21] MEDS: METOPROLOL TARTRATE 50 MG TAB PO ×2 (11:24→20:37)
[2023-04-21] MEDS: LOSARTAN POTASSIUM 25 MG TABLET PO (11:24)
[2023-04-21] MEDS: ATORVASTATIN 40 MG TABLET 80 MG PO (11:25)
[2023-04-21] MEDS: PANTOPRAZOLE 40 MG TABLET PO (13:49)
[2023-04-21] MEDS: ISOSORBIDE MONONITRATE 30 MG TAB.ER.24H PO (13:49)
[2023-04-21] MEDS: TICAGRELOR 90 MG TABLET PO ×2 (13:49→20:38)
--- NOTE | 2023-04-21 14:48 | PM.IMHP ---
H&P: HPI History of Present Illness Date/Time: 04/21/23 14:48 Chief Complaint: Chest pain Narrative: This is a 42 year old male who is well known to me. He was discharged on 04/18 after being admitted with an inferior STEMI, s/p PCI to the RCA. Noted to have mild non-obstructive coronary disease of his left coronary system. Patient states he was doing well after hospital discharge, however, yesterday evening around 7PM, when he sat down to eat, he had left sided chest pain near his axilla. [place] like a muscle cramp. Was not the same pain that he had when he presented with his STEMI. Given NTG in the ED, but pain was starting to resolve by that time. Chest pain resolved by 10PM. Has not had recurrence of chest pain since then and currently feels well. EKG without ischemic changes. Troponins at 3.380, 4.030, and 3.740. His peak troponin last week from STEMI was 8. Chest CTA without acute findings. Patient admitted and started on Heparin drip. Review of Systems Review of Systems: All systems reviewed & are unremarkable except as noted in HPI and below (HPI) [facility] Past Medical History Medical History Essential hypertension Hyperlipidemia LDL goal <70 No significant past medical history Surgical History Surgical History History of hernia repair Family History Family History Grandparent Cancer Father Automobile accident Social History Social History Smoking packs per day: 1.5 Smoking cigarettes per day: 30.0 Years smoked: 25 Smoking pack-years: 37.50 Smoking status: Heavy tobacco smoker Tobacco type: cigarettes and cigars Alcohol intake: never Substance use: never Lack of Transportation: No Lack of Food: Never True Current Housing: I Have Housing Concerned About Future Housing: No Difficulty Paying Gas/Electric Bills: No Difficulty Paying for Meds: No Currently Unemployed: No Education: Decline to Answer Difficulty w/ Childcare or Family Care: No Spiritual care concerns: No Meds Home Medications and Allergies Home Medications Medication Instructions Recorded Confirmed Type aspirin 81 mg tablet,delayed 81 mg PO QAM #90 tabs 04/17/23 04/21/23 Rx release atorvastatin 80 mg tablet 80 mg PO DAILY #90 tabs 04/17/23 04/21/23 Rx ticagrelor 90 mg tablet (Brilinta) 90 mg PO Q12HR #180 tabs 04/17/23 04/21/23 Rx losartan 25 mg tablet 25 mg PO DAILY #30 tabs 04/18/23 04/21/23 Rx metoprolol tartrate 50 mg tablet 50 mg PO Q12HR #60 tabs 04/18/23 04/21/23 Rx Allergies Allergy/AdvReac Type Severity Reaction Status Date / Time No Known Allergies Allergy Verified 04/17/23 08:16 Vital Signs Vital Signs - 24 hr 04/20/23 19:35 04/20/23 21:25 04/20/23 23:58 Temperature 36.6 C Pulse Rate 113 H 90 88 Respiratory Rate 18 20 20 Blood Pressure 144/89 H 119/88 128/94 H Pulse Oximetry 99 98 97 Oxygen Delivery Room Air 04/21/23 00:20 04/21/23 00:30 04/21/23 02:00 Temperature 36.1 C L Pulse Rate 91 91 81 Respiratory Rate 18 Blood Pressure 135/92 H Pulse Oximetry 97 Oxygen Delivery 04/21/23 03:31 04/21/23 04:00 04/21/23 04:00 Temperature 36.1 C L Pulse Rate 86 86 77 Respiratory Rate 18 18 Blood Pressure 92/63 L Pulse Oximetry 97 97 Oxygen Delivery Room Air 04/21/23 06:06 04/21/23 08:00 04/21/23 11:07 Temperature 36.6 C 36.8 C Pulse Rate 88 86 81 Respiratory Rate 18 18 Blood Pressure 136/89 131/94 H Pulse Oximetry 97 99 Oxygen Delivery 04/21/23 11:24 04/21/23 08:00 04/21/23 08:00 Temperature Pulse Rate 92 108 H Respiratory Rate Blood Pressure Pulse Oximetry 99 Oxygen Delivery Room Air 04/21/23 10:00 04/21/23 12:00 Temperature Pulse Rate 78 73 Respiratory Rate Blood Pressure
--- NOTE | 2023-04-21 17:45 | PC.NURSE ---
This patient, Paxton Benavides, was transferred to [facility] on 04/21/23 at 1824. Personal belongings sent with patient. Report given to DORY Flannery. Appropriate documentation sent with patient.
[2023-04-22] VITALS: PULSE 81
[2023-04-22 04:00] VITALS: PULSE 78
[2023-04-22 06:02] VITALS: BP 129/89; PULSE 80; RESP 18; TEMP 36.6; O2SAT 97
[2023-04-22 08:00] VITALS: PULSE 83
[2023-04-22] MEDS: ATORVASTATIN 40 MG TABLET 80 MG PO (08:18)
[2023-04-22] MEDS: ISOSORBIDE MONONITRATE 30 MG TAB.ER.24H PO (08:18)
[2023-04-22 08:19] VITALS: PULSE 80
[2023-04-22] MEDS: ASPIRIN 81 MG ENTERIC TABLET PO (08:19)
[2023-04-22] MEDS: TICAGRELOR 90 MG TABLET PO (08:19)
[2023-04-22] MEDS: LOSARTAN POTASSIUM 25 MG TABLET PO (08:19)
[2023-04-22] MEDS: PANTOPRAZOLE 40 MG TABLET PO (08:19)
[2023-04-22] MEDS: METOPROLOL TARTRATE 50 MG TAB PO (08:19)
--- NOTE | 2023-04-22 11:05 | PM.DS ---
DS: Admitting Diagnosis Discharge Date 04/22/2023 Admitting Diagnosis Chest pain DS: Summary Hospital Course Reason for hospitalization: Chest pain Hospital Course: Patient admitted for chest pain evaluation after discharge for recent STEMI. His chest pain has resolved and has not reoccurred. Different type of pain than when he had his DE. His EKG are without ischemic changes. Troponins are downtrending from his STEMI event from last week. Unlikely to be stent thrombosis as patient has been fully compliant with his DAPT, EKG without ischemic changes, downtrending troponins from his STEMI event, and resolution of chest pain. During his STEMI PCI, he did have spasm of his RCA after stent deployment that resolved with intracoronary NTG. Continue with DAPT, beta damaris. Started Imdur given the spasm noted on cath. Since patient is also on DAPT, started PPI. Status at Discharge Functional status at discharge: independent ambulation Time Spent with Patient Time attestation: Total time spent providing and/or coordinating discharge services: Exam Const: General: comfortable and no acute distress HENMT: Mouth: Yes moist mucous membranes Eyes: General: appearance normal, both eyes and all related structures Sclera: sclerae normal Neck: Neck: supple Resp: Effort & Inspection: normal respiratory effort Auscultation: clear to auscultation bilaterally Cardio: Rate: regular rate Skin: General skin exam: normal color Psych: Mental Status: mental status grossly normal Affect: normal affect Discharge Plan Discharge Attending physician on discharge: Roger Hopper Consulting providers: Vero Hernandez Discharging Clinician: Roger Hopper Anticipated Discharge Date/Time: 04/22/23 11:03 Patient Disposition: Home, Self-Care Activity: may shower Diet: heart healthy Patient Instructions: Antibiotic Form, Ticagrelor (By mouth), Chest Pain (GEN), Safe Use of Anticoagulants (DC) Stand Alone Forms: General Discharge Information Follow-up/Referrals: Roger Hopper MD [Physician] - Discharge Medications: New isosorbide mononitrate 30 mg Tablet Extended Release 24 Hr 30 mg PO QAM Qty: 90 3RF pantoprazole 40 mg Tablet,Delayed Release (Dr/Ec) 40 mg PO QAM Qty: 90 3RF nitroglycerin [Nitrostat] 0.4 mg Tablet, Sublingual 0.4 mg sublingual Q5MIN PRN (Reason: Chest Pain) Qty: 30 3RF Continued aspirin 81 mg Tablet,Delayed Release (Dr/Ec) 81 mg PO QAM Qty: 90 3RF atorvastatin 80 mg tablet 80 mg PO DAILY Qty: 90 3RF Brilinta 90 mg Tablet 90 mg PO Q12HR Qty: 180 3RF losartan 25 mg Tablet 25 mg PO DAILY Qty: 30 11RF metoprolol tartrate 50 mg Tablet 50 mg PO Q12HR Qty: 60 11RF Date of admission: 04/20/23 22:40 Primary Care Provider: PHYSICIAN NOT ON STAFF,NONSTAFF Admitting Provider: Belle Garcia Attending physician on admission: Belle Garcia Condition: Stable
== END 2023-04-22 10:30 | disposition home or self-care (01) ==
LOC: ANHED 22:39 → ANHIMU 04-21 01:43 → ANH3MEDSUR 04-22 11:05 → ANHIMU 04-23 09:27
PROVIDERS: Emergency Medicine; Internal Medicine Cardiovascular Disease; Admitting Provider Internal Medicine; Emergency Provider Physician Assistant; Visit Provider Internal Medicine
DX: R07.9 Chest pain, unspecified (principal); R79.89 Other specified abnormal findings of blood chemistry; I25.10 Atherosclerotic heart disease of native coronary artery without angina pectoris; Z95.5 Presence of coronary angioplasty implant and graft; R94.31 Abnormal electrocardiogram [ECG] [EKG]; R00.0 Tachycardia, unspecified; I10 Essential (primary) hypertension; E78.5 Hyperlipidemia, unspecified; F17.210 Nicotine dependence, cigarettes, uncomplicated; Z79.82 Long term (current) use of aspirin; Z79.899 Other long term (current) drug therapy
CPT/HCPCS: 36415; 71046; 71275; 80053; 83690; 84484; 85025; 85610; 85730; 93005; 96365; 96366; 99285; A9270; G0378; J1644; Q9967

== ENCOUNTER 2023-05-26 10:38 | Outpatient (CLI) | payer MEDICAID, SELFPAY ==
--- NOTE | 2023-05-26 | EST_ITS ---
Patient Info Name: Paxton Benavides Age: 43 years : 1980 Gender: Male Ht: 69 in Wt: 229 lbs BSA: 2.28 m2 HR: 89 bpm BP: 112 / 82 mmHg Heart Rhythm: Sinus Rhythm Exam Date: 05/26/2023 11:01 AM Exam Location: Echo Lab Patient Status: Outpatient Admit Date: 05/26/2023 Staff Ordering Physician: Chuy, Tish Cancino NP Attending Provider: Chuy, Tish Cancino NP Exercise Technologist: Cynthia Estrella CT Nurse: Fabi Mcclure APN Exam Type: CA stress test treadmill Study Info Indications I25.10 - Atherosclerotic heart disease of [place] coronary artery without angina pectoris A treadmill exercise stress test was performed. Summary 1. Negative treadmill stress test for ischemia. 2. Average exercise tolerance. Protocol: Kevin Stress ECG Details Stage: REST Duration (min): 1 min : 54 sec Speed (mph): 0.0 Grade (%): 0 HR (bpm): 84 SBP (mmHg): 112 DBP (mmHg): 82 METS: --- Stage: REST Duration (min): 6 min : 19 sec Speed (mph): 0.0 Grade (%): 0 HR (bpm): 86 SBP (mmHg): 112 DBP (mmHg): 82 METS: --- Stage: STAGE 1 Duration (min): 1 min : 0 sec Speed (mph): 1.7 Grade (%): 10 HR (bpm): 117 SBP (mmHg): 112 DBP (mmHg): 82 METS: --- Stage: STAGE 1 Duration (min): 2 min : 0 sec Speed (mph): 1.7 Grade (%): 10 HR (bpm): 126 SBP (mmHg): 112 DBP (mmHg): 82 METS: --- Stage: STAGE 1 Duration (min): 3 min : 0 sec Speed (mph): 1.7 Grade (%): 10 HR (bpm): 131 SBP (mmHg): 133 DBP (mmHg): 66 METS: --- Stage: STAGE 2 Duration (min): 1 min : 0 sec Speed (mph): 2.5 Grade (%): 12 HR (bpm): 139 SBP (mmHg): 133 DBP (mmHg): 66 METS: --- Stage: STAGE 2 Duration (min): 2 min : 0 sec Speed (mph): 2.5 Grade (%): 12 HR (bpm): 146 SBP (mmHg): 133 DBP (mmHg): 66 METS: --- Stage: STAGE 2 Duration (min): 3 min : 0 sec Speed (mph): 2.5 Grade (%): 12 HR (bpm): 150 SBP (mmHg): 134 DBP (mmHg): 67 METS: --- Stage: STAGE 3 Duration (min): 1 min : 0 sec Speed (mph): 3.4 Grade (%): 14 HR (bpm): 158 SBP (mmHg): 134 DBP (mmHg): 67 METS: --- Stage: STAGE 3 Duration (min): 1 min : 0 sec Speed (mph): 3.4 Grade (%): 14 HR (bpm): 158 SBP (mmHg): 134 DBP (mmHg): 67 METS: --- Stage: RECOVERY Duration (min): 0 min : 59 sec Speed (mph): 0.0 Grade (%): 0 HR (bpm): 143 SBP (mmHg): 134 DBP (mmHg): 67 METS: --- Stage: RECOVERY Duration (min): 1 min : 59 sec Speed (mph): 0.0 Grade (%): 0 HR (bpm): 127 SBP (mmHg): 134 DBP (mmHg): 67 METS: --- Stage: RECOVERY Duration (min): 2 min : 59 sec Speed (mph): 0.0 Grade (%): 0 HR (bpm): 117 SBP (mmHg): 125 DBP (mmHg): 76 METS: --- Stage: RECOVERY Duration (min): 3 min : 59 sec Speed (mph): 0.0 Grade (%): 0 HR (bpm): 111 SBP (mmHg): 125
== END 2023-05-26 10:39 | disposition home or self-care (01) ==
LOC: ANHCARD 10:39
PROVIDERS: Visit Provider Nurse Practitioner Adult Health
DX: I25.118 Atherosclerotic heart disease of native coronary artery with other forms of angina pectoris (principal); I25.2 Old myocardial infarction
CPT/HCPCS: 93017